=== PATIENT | male | born 1950 | race Caucasian/White ===

== ENCOUNTER 2021-09-09 08:37 | Inpatient (IN) | payer MEDICARE ==
[~2021-09-09] VITALS: Ht 180.3 cm; Wt 90.7 kg
[~2021-09-09 08:37] MED LIST: ATOR20; ATOR20 PO; AZIT250 PO; DECARA1250 MC1 PO; Inderal40 MG PO; OMEP20ER PO; OMEPRAZOLE MAGN20 MG PO; Omeprazole20 M1; PARO2SU; PAROXETINE ER25 MG; PAXIL40 M1 PO; PRED20 PO; PRIM50 PO; Paxil40 MG PO; Primidone50 MG; Primidone50 MG PO; TAMSULOSIN HCL0.4 M1 PO; XARELTO15 M1 PO; XARELTO15 MG PO; ZYRTEC10 M1 PO; [UNRECOGNIZED DRUG - REMARK]
[2021-09-09 09:52] LABS: BASOPHILS ABSOLUTE AUTO 0.01 K/mm3 (0.00-0.23); BASOPHILS PERCENT AUTO 0 % (0-2); EOSINOPHILS PERCENT AUTO 0 % (0-6); Hematocrit 45.2 % (37.0-53.0); Hemoglobin 14.8 g/dL (13.5-17.5); IMMATURE GRAN ABSOLUTE AUTO 0.03 K/mm3 (0.00-0.10); IMMATURE GRAN PERCENT AUTO 0 % (0-1); LYMPHOCYTES ABSOLUTE AUTO 0.68 K/mm3 (0.84-5.20); LYMPHOCYTES PERCENT AUTO 10 % (21-46); MONOCYTES ABSOLUTE AUTO 0.57 K/mm3 (0.16-1.47); MONOCYTES PERCENT AUTO 8 % (4-13); Mean Corpuscular HGB 31.9 pg (26.0-34.0); Mean Corpuscular HGB Conc 32.7 g/dL (31.5-36.5); Mean Corpuscular Volume 97 fL (80-100); Mean Platelet Volume 9.2 fL (9.1-12.4); NEUTROPHILS ABSOLUTE AUTO 5.78 K/mm3 (1.96-9.15); NEUTROPHILS PERCENT AUTO 82 % (41-73); Platelet Count 248 K/mm3 (150-400); RDW Coefficient Variation 13.5 % (11.7-14.2); RDW Standard Deviation 49.1 fL (35.1-46.3); Red Blood Cell Count 4.64 M/mm3 (4.30-5.90); White Blood Cell Count 7.07 K/mm3 (4.00-11.30)
[2021-09-09 10:04] LABS: Anion Gap 7 mmol/L (6-16); Blood Urea Nitrogen 22 mg/dL (8-24); Bun/Creatinine Ratio 39.5 (12.0-20.0); CO2, Blood 31 mmol/L (21-32); Calcium, Blood 8.8 mg/dL (8.5-10.1); Chloride, Blood 101 mmol/L (98-108); Creatinine, Blood 0.56 mg/dL (0.60-1.20); Glomerular Filtration Rate >60 (60-); Glucose, Blood 120 mg/dL (70-99); Potassium, Blood 3.8 mmol/L (3.5-5.5); Sodium, Blood 139 mmol/L (136-145)
--- NOTE | 2021-09-09 17:40 | NUR ---
ADMITTED FROM ER IN ISOLATION WITH COVID. O2 AT 6 LPM NASAL CANNULA. ATTENDS IN PLACE FOR INCONTINENT URINE AND STOOL. PINKISH AREA NOTED ON BUTTOCKS BLANCHABLE WITH INTACT SKIN. BARRIER CREAM WAS APPLIED ON ADMIT WHEN ATTENDS CHANGED. SALINE LOCK INTACT. CONTINUOUS PULSE OX INITIATED PER RESPIRATORY THERAPY RECENTLY. CPAP MACHINE FROM HOME NOT AVAILABLE. ORDER IS TO HAVE CPAP WITH HOME SETTINGS. PATIENT STATES HE HAS NOT BEEN USING HOME CPAP FOR A WHILE EVEN PRIOR TO GETTING COVID. RESPIRATIONS EVEN AND UNLABORED. WILL MONITOR.
[2021-09-10 05:15] LABS: Anion Gap 5 mmol/L (6-16); Blood Urea Nitrogen 20 mg/dL (8-24); Bun/Creatinine Ratio 43.6 (12.0-20.0); CO2, Blood 29 mmol/L (21-32); Calcium, Blood 8.2 mg/dL (8.5-10.1); Chloride, Blood 105 mmol/L (98-108); Creatinine, Blood 0.46 mg/dL (0.60-1.20); Glomerular Filtration Rate >60 (60-); Glucose, Blood 105 mg/dL (70-99); Potassium, Blood 3.8 mmol/L (3.5-5.5); Sodium, Blood 139 mmol/L (136-145)
--- NOTE | 2021-09-10 06:38 | NUR ---
SHIFT SUMMARY PATIENT ALERT AND ORIENTED X4. HAD NO COMPLAINTS OF PAIN OR SHORTNESS OF BREATH OVERNIGHT. CURRENTLY ON 3 LITERS O2 VIA NC. NO ACUTE ISSUES NOTED OVERNIGHT. BED IN LOWEST POSITION WITH WHEELS LOCKED AND ALARM ON. CALL LIGHT WITHIN REACH. REPORT GIVEN TO ONCOMING RN.
--- NOTE | 2021-09-10 10:15 | NUR ---
@ 0725, PULSE OX 93% ON O2 3 LPM NASAL CANNULA, HR 65.
--- NOTE | 2021-09-10 10:16 | NUR ---
@ 9050, BARRIER CREAM APPLIED TO BUTTOCKS WHEN ATTENDS AND LINEN CHANGED. URINE AND STOOL INCONTINENCE. EMPTIED 300 CC FROM URINAL.
--- NOTE | 2021-09-10 10:19 | NUR ---
O2 SAT 94% ON 3 LPM NASAL CANNULA, HR 76.
--- NOTE | 2021-09-10 14:59 | NUR ---
ATTEMPTED TO ASSIST PATIENT OOB X 2 TO [facility]. PATIENT WAS WEAK AND UNABLE TO STAND UP. DR. LÓPEZY IN FOR ROUNDS AND WAS INFORMED. PT/OT CONSULT BEING PLACED. ASSISTED PATIENT BACK TO LYING POSITION. ATTENDS CHANGED WITH URINE AND SMALL AMOUNT OF STOOL NOTED. BARRIER CREAM APPLIED. TOLERATED WELL. WILL MONITOR.
--- NOTE | 2021-09-10 15:49 | NUR ---
INCENTIVE SPIROMETER DISCUSSED WITH PATIENT BUT PHONE RANG SO INSTRUCTION WAS UNABLE TO BE PROVIDED. WILL NEED FOLLOW UP.
--- NOTE | 2021-09-10 16:26 | NUR ---
MEDICATED X 1 FOR PAIN. NO COMPLAINTS VOICED OTHERWISE. SALINE LOCK INTACT. RECEIVED IV ABX PER E-MAR. AMBUALTES TO BATHROOM. VOIDED AND HAD BM THIS SHIFT. ORTHOPEDIC CONSULT PENDING. TOLERATED PO FOOD AND FLUIDS. WILL MONITOR.
--- NOTE | 2021-09-10 16:29 | NUR ---
VOID PREVIOUS RN/MEDIC[employer] SALES EXECUTIVE SHIFT SUMMARY. DOCUMENTED ON WRONG PATIENT.
--- NOTE | 2021-09-10 16:30 | NUR ---
PATIENT IS STILL ON ISOLATION FOR COVID. PT EVALUATION JUST COMPLETED. RESPIRATION EVEN AND UNLABORED. IS PROVIDED. WILL NEED REINFORCED INSTRUCTIONS. O2 SAT REMAINED 90% AND ABOVE ON 3 LPM NASAL CANNULA. REMDESIVIR FIRST DOSE IN PROGRESS. SALINE LOCK INTACT. POOR FOOD INTAKE TODAY. PATIENT WANTED TO SLEEP ALOT. WILL MONITOR.
--- NOTE | 2021-09-11 05:57 | NUR ---
SHIFT SUMMARY PATIENT ALERT AND ORIENTED. HAD NO COMPLAINTS OF PAIN OR SHORTNESS OF BREATH. CURRENTLY ON 8 LITERS O2 VIA NC. NO ACUTE ISSUES NOTED OVERNIGHT. CALL LIGHT WITHIN REACH. REPORT GIVEN TO ONCOMING RN.
[2021-09-11 06:19] LABS: BASOPHILS ABSOLUTE AUTO 0.01 K/mm3 (0.00-0.23); BASOPHILS PERCENT AUTO 0 % (0-2); EOSINOPHILS ABSOLUTE AUTO 0.01 K/mm3 (0.00-0.68); EOSINOPHILS PERCENT AUTO 0 % (0-6); Hemoglobin 14.1 g/dL (13.5-17.5); IMMATURE GRAN ABSOLUTE AUTO 0.09 K/mm3 (0.00-0.10); IMMATURE GRAN PERCENT AUTO 2 % (0-1); LYMPHOCYTES ABSOLUTE AUTO 0.95 K/mm3 (0.84-5.20); LYMPHOCYTES PERCENT AUTO 18 % (21-46); MONOCYTES ABSOLUTE AUTO 0.58 K/mm3 (0.16-1.47); MONOCYTES PERCENT AUTO 11 % (4-13); Mean Corpuscular HGB 31.8 pg (26.0-34.0); Mean Corpuscular HGB Conc 32.8 g/dL (31.5-36.5); Mean Corpuscular Volume 97 fL (80-100); Mean Platelet Volume 9.3 fL (9.1-12.4); NEUTROPHILS ABSOLUTE AUTO 3.53 K/mm3 (1.96-9.15); NEUTROPHILS PERCENT AUTO 68 % (41-73); Platelet Count 232 K/mm3 (150-400); RDW Coefficient Variation 13.2 % (11.7-14.2); RDW Standard Deviation 47.9 fL (35.1-46.3); Red Blood Cell Count 4.43 M/mm3 (4.30-5.90); White Blood Cell Count 5.17 K/mm3 (4.00-11.30)
[2021-09-11 06:33] LABS: Anion Gap 7 mmol/L (6-16); Blood Urea Nitrogen 19 mg/dL (8-24); Bun/Creatinine Ratio 54.9 (12.0-20.0); CO2, Blood 26 mmol/L (21-32); Calcium, Blood 8.1 mg/dL (8.5-10.1); Chloride, Blood 105 mmol/L (98-108); Creatinine, Blood 0.35 mg/dL (0.60-1.20); Glomerular Filtration Rate >60 (60-); Glucose, Blood 110 mg/dL (70-99); Sodium, Blood 138 mmol/L (136-145)
--- NOTE | 2021-09-11 14:23 | NUR ---
SPOKE WITH SHENA IN RESPIRATORY ABOUT SETTING UP A BIPAP PER PROTOCOL.
--- NOTE | 2021-09-11 18:08 | NUR ---
SLEPT MOST OF THE DAY. REMAINS IN ISOLATION DUE TO COVID. RESPIRATORY THRAPIST SPOKE WITH PATIENT AND SET UP BIPAP. PATIENT AGREED TO USE IT AT NIGHT IF HE COULD HAVE A SLEEPING PILL. MD ORDERED MELATONIN. PATIENT'S O2 REMAINS AT 8 LPM VIA CANNULA. RESPIRATIONS ARE UNLABORED, COUGH IS PRODUCTIVE. ENCOURAGED IS USE TODAY WHEN ROUNDING, AVERAGING [phone]. VOIDS PER URINAL AND HAS ATTENDS IN PLACE. SALINE LOCK INTACT. RECEIVED DOSE OF REMDESIVIR TODAY. MEDICATED PER E-OCT. WILL MONITOR.
--- NOTE | 2021-09-12 06:47 | NUR ---
SHIFT SUMMARY PATIENT ALERT AND ORIENTED. HAD NO COMPLAINTS OF PAIN OR SHORTNESS OF BREATH. CONTINUES ON 8 LITERS O2 VIA NC. ATTEMPTED WEARING CPAP BUT IS COUGHING UP TOO MUCH SPUTUM TO WEAR. NO ACUTE ISSUES NOTED OVERNIGHT. CALL LIGHT WITHIN REACH. REPORT GIVEN TO ONCOMING RN.
--- NOTE | 2021-09-12 09:55 | NUR ---
@0820, REFUSED BREAKFAST. STATED HE DIDN'T TOLERATE BIPAP WELL LAST NIGHT DUE TO NASAL CONGESTION. CONTINUOUS PULSE OX IN USE. ATTENDS INTACT. IS ENCOURAGED AND USED AVERAGING 1400. TOLERATED WELL. FREQUENT PRODUCTIVE COUGH NOTED. WILL MONITOR.
--- NOTE | 2021-09-12 11:16 | NUR ---
@ 1056, PATIENT O2 SAT 85% ON 8 LPM HIGH FLOW CANNULA. O2 INCREASED TO 9 LPM, PATIENT USED IS WITH ENCOURAGEMENT AND O2 SAT BECAME 91%. O2 AT 9 LPM CONTINUES. WILL MONITOR.
--- NOTE | 2021-09-12 12:12 | NUR ---
MAINTAINED O2 AT 94-95% SINCE INCREASED. DECREASED BACK TO 8 LPM HIGH FLOW CANNULA. STILL MAINTAINING AT 94%. AWAKE AND WATCHING TV. STATED HE WAS UNABLE TO TOLERATE SITTING IN THE CHAIR WITH PT. WILL MONITOR.
--- NOTE | 2021-09-12 17:07 | NUR ---
O2 AT 8 LPM HIGH FLOW CANNULA. INCREASED BRIEFLY TO 9 LPM DUE TO PULSE OX. AWAKE MORE TODAY. POOR FOOD INTAKE. STARTED ENSURE PO. VOIDS PER URINAL. ATTENDS PRESENT FOR STOOL AND OCCASIONAL URINE. STILL IN ISOLATION DUE TO COVID. RECEIVED REMDIZIVIR PER E-MAR. VS STABLE. IS USED AVERAGING [phone]. WILL MONITOR.
--- NOTE | 2021-09-13 05:13 | NUR ---
SHIFT SUMMARY AOX4. SLOW TO RESPOND. VERY WEAK & DECONDITIONED. DENIES PAIN, N/V OR SOB @REST. SPO2 @94% ON 7L O2. LS DIM T/O. HAS MOD PRODUCTIVE COUGH c YELLOW, CLEAR SPUTUM. USING SUCTION @BEDSIDE TO ASSIST c SPUTUM PRODUCTION. INFORMED DR SALDIVAR & SHE ORDERED 600MG MUCINEX BID FOR PT. CALL LIGHT IN REACH. WCTM.
--- NOTE | 2021-09-13 11:52 | NUR ---
RETURNED CALL TO PATIENT'S DAUGHTER, BRISSA AT [phone]. UPDATED ON STATUS. SHE SAID HE WANTS TO GO HOME. REVIEWED SOME INFO FROM THE DOCTOR'S 09/09/21 PROGRESS NOTE WITH HER ABOUT HIM REFUSING TO GO TO A COVID UNIT WITH REHAB SERVICES. SHE WOULD LIKE THE DOCTOR TO CALL HER TODAY IF POSSIBLE. I TOLD HER I WOULD DO MY BEST TO FACILITATE THIS IF I SEE THE DOCTOR ON ROUNDS AND THAT I WOULD PUT HER NAME AND NUMBER ON THE WHITEBOARD IN THE ROOM SO IT IS ACCESSIBLE TO THE DOCTOR.
--- NOTE | 2021-09-13 14:18 | NUR ---
@ 1010, PULSE OX 94%, HR 82.
--- NOTE | 2021-09-13 14:19 | NUR ---
@ 1230, O2 DECREASED TO 6 L[address] FLOW CANNULA[address] RO IN. TALKED TO HER ABOUT DAUGHTER WANTING A PHONE CALL. O2 SAT 94%.
--- NOTE | 2021-09-13 14:21 | NUR ---
O2 SAT 95% ON 6 LPM CANNULA.
--- NOTE | 2021-09-13 14:48 | NUR ---
SPOKE WITH FLAKITA IN PALLIATIVE CARE ABOUT NEW CONSULT.
--- NOTE | 2021-09-13 15:05 | NUR ---
Referral and report received from pt's RN on current status and concerns re: goals of care, pt's wishes for d/c home despite therapy recommendation for rehab in [facility] re[facility] unit. 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 Referral placed for CM/social media marketer to assist with d/c planning also. [facility] to see as soon as we are able to.
--- NOTE | 2021-09-13 16:33 | NUR ---
02 WEANED TO 6 LPM CANNULA WHICH IS WHAT PATIENT WAS ON AT HOME PRIOR TO THIS ADMIT. PATIENT WANTS TO BE DISCHARGED. DAUGHTER HAS CONCERNS WITH BEING ABLE TO CARE FOR HIM AND HER MOTHER AT HOME WITH THEIR CURRENT CONDITIONS. DR. RO SPOKE WITH DAUGHTER AND THEY WILL ALL CONFERENCE TOMORROW ABOUT D/C DISPOSITION. REMDIZIVIR IV CONTINUES. PATIENT ALSO IS BEING SEEN BY A NEUROLOGIST AND WORKED UP TO SEE IF HE MAY HAVE MUSCULAR DYSTROPHY. CONTINUOUS PULSE OX CONTINUES. VOIDS BY URINAL AND OCCASIONALLY IN ATTENDS WITH INCONTINENT STOOL. PATIENT HAS BEEN MORE AWAKE TODAY THAN THE LAST FEW DURING DAYSHIFT. COMPLETED PT TODAY. WILL MONITOR.
--- NOTE | 2021-09-13 16:46 | NUR ---
SHIFT SUMMARY DONE UNDER A "NURSES NOTE" 09/13/21 AT 1633. SEE NURSES NOTE.
--- NOTE | 2021-09-13 17:09 | NUR ---
O2 SAT RUNNING 86-87%. O2 INCREASED TO 7 LPM. IS USE ENCOURAGED. CURRENTLY 94%.
[2021-09-13] MEDS ORDERED: VITAMIN D5000 UNIT PO (22:30)
--- NOTE | 2021-09-14 04:48 | NUR ---
SHIFT SUMMARY AOX3. SLOW TO RESPOND. FLAT, WITHDRAWN AFFECT. SPO2 >90% ON 6L O2. DENIES SOB @REST. LS DIM c RHONCHI IN R LOBES. STILL HAS PRODUCTIVE CONGESTED COUGH c MOD AMOUNT YELLOW/LIANG SPUTUM, USING SUCTION TO HELP. DENIES PAIN, N/V. AWAITING SAFE DC PLAN. CALL LIGHT IN REACH, [facility].
[2021-09-14 05:35] LABS: BASOPHILS ABSOLUTE AUTO 0.02 K/mm3 (0.00-0.23); BASOPHILS PERCENT AUTO 0 % (0-2); EOSINOPHILS ABSOLUTE AUTO 0.13 K/mm3 (0.00-0.68); EOSINOPHILS PERCENT AUTO 2 % (0-6); Hematocrit 46.1 % (37.0-53.0); Hemoglobin 14.8 g/dL (13.5-17.5); IMMATURE GRAN ABSOLUTE AUTO 0.03 K/mm3 (0.00-0.10); IMMATURE GRAN PERCENT AUTO 0 % (0-1); LYMPHOCYTES ABSOLUTE AUTO 1.27 K/mm3 (0.84-5.20); LYMPHOCYTES PERCENT AUTO 17 % (21-46); MONOCYTES PERCENT AUTO 8 % (4-13); Mean Corpuscular HGB 31.3 pg (26.0-34.0); Mean Corpuscular HGB Conc 32.1 g/dL (31.5-36.5); Mean Corpuscular Volume 98 fL (80-100); Mean Platelet Volume 9.2 fL (9.1-12.4); NEUTROPHILS ABSOLUTE AUTO 5.47 K/mm3 (1.96-9.15); NEUTROPHILS PERCENT AUTO 73 % (41-73); Platelet Count 295 K/mm3 (150-400); RDW Standard Deviation 46.7 fL (35.1-46.3); Red Blood Cell Count 4.73 M/mm3 (4.30-5.90); White Blood Cell Count 7.52 K/mm3 (4.00-11.30)
[2021-09-14 05:55] LABS: Anion Gap 6 mmol/L (6-16); Blood Urea Nitrogen 19 mg/dL (8-24); Bun/Creatinine Ratio 47.4 (12.0-20.0); CO2, Blood 28 mmol/L (21-32); Calcium, Blood 8.3 mg/dL (8.5-10.1); Chloride, Blood 103 mmol/L (98-108); Glomerular Filtration Rate >60 (60-); Glucose, Blood 97 mg/dL (70-99); Potassium, Blood 3.9 mmol/L (3.5-5.5); Sodium, Blood 137 mmol/L (136-145)
--- NOTE | 2021-09-14 17:22 | NUR ---
SHIFT SUMMARY: NO ACUTE EVENTS. DENIES PAIN. ORIENTED X 3, BUT HE IS WITHDRAWN WITH A FLAT AFFECT. OXYGEN TITRATED DOWN TO 4 L/MIN HIGH FLOW NC FROM 6 L THIS MORNING. PROD COUGH WITH WEAK COUGH EFFORT, USING SUCTION INDEPENDENTLY. DID NOT GET OOB WITH NURSING TODAY. HAS VERY POOR APPETITE. HAD POOR NIGHT'S SLEEP LAST NIGHT, HAS BEEN NAPPING INTERMITTENTLY ALL DAY. PT HAD MEETING WITH DR. RO AND HIS SON AND DAUGHTER REGARDING HIS D/C PLAN; WILL GO TO SNF COVID UNIT..
--- NOTE | 2021-09-15 06:06 | NUR ---
SHIFT SUMMARY PATIENT ALERT AND ORIENTED. HAD NO COMPLAINTS OF PAIN OR SHORTNESS OF BREATH. HAS WET PRODUCTIVE COUGH. NO ACUTE ISSUES NOTED OVERNIGHT. BED IN LOWEST POSITION WITH WHEELS LOCKED AND ALARM ON. CALL LIGHT WITHIN REACH. REPORT GIVEN TO ONCOMING RN.
[2021-09-15] MEDS ORDERED: GUAI600T33 PO (18:53)
[2021-09-15] MEDS ORDERED: CEFP200 PO (18:53)
[2021-09-15] MEDS ORDERED: MELATONIN5 M1 PO (18:54)
[2021-09-15] MEDS ORDERED: DECADRON6 M1 PO (18:55)
--- NOTE | 2021-09-15 18:55 | NUR ---
SHIFT SUMMARY: OXYGEN TITRATED DOWN TO 4 L/MIN NC WITH O2 SATS 90-93%. PROD COUGH BUT SPUTUM PRODUCTION HAS DECREASED. GOT UP TO CHAIR WITH 1 PERSON ASSIST AND GAIT BELT. POOR APPETITE, FAMILY BRINGING OUTSIDE FOOD. IN BETTER SPIRITS TODAY OVERALL. WILL TRANSFER TO [facility] THIS EVENING. TELEPHONE REPORT GIVEN TO NOVEMBER AT FACILITY.
--- NOTE | 2021-09-15 20:03 | NUR ---
naty discharged with transport.
== END 2021-09-15 20:01 | DRG 177 ==
LOC: ER 08:37 → MEDS 08:38
PROVIDERS: Internal Medicine; Nurse Practitioner Acute Care; Student in an Organized Health Care Education/Training Program; ADMIT Internal Medicine
PROC: 8E0ZXY6 Isolation (ICD-10-PCS; principal; 2021-09-10)
PROC: 3E0333Z Introduction of Anti-inflammatory into Peripheral Vein, Percutaneous Approach (ICD-10-PCS; 2021-09-10)
PROC: 3E0DX3Z Introduction of Anti-inflammatory into Mouth and Pharynx, External Approach (ICD-10-PCS; 2021-09-10)
DX: U07.1 COVID-19 (principal); J12.82 Pneumonia due to coronavirus disease 2019; J96.01 Acute respiratory failure with hypoxia; J15.9 Unspecified bacterial pneumonia; G25.0 Essential tremor; Z51.5 Encounter for palliative care; G47.33 Obstructive sleep apnea (adult) (pediatric); F32.A Depression, unspecified; N40.0 Benign prostatic hyperplasia without lower urinary tract symptoms; E78.00 Pure hypercholesterolemia, unspecified; G71.00 Muscular dystrophy, unspecified; Z98.890 Other specified postprocedural states; Z79.01 Long term (current) use of anticoagulants; Z79.52 Long term (current) use of systemic steroids; Z79.899 Other long term (current) drug therapy
CPT/HCPCS: 36415; 71045; 80048; 82550; 82947; 83735; 83880; 84145; 84484; 85025; 86038; 92610; 93005; 93010; 94660; 94762; 96365; 96366; 96375; 97110; 97116; 97162; 97166; 97530; 99285-25; A9270; G0378; J0248; J0456; J0696; J1100; J1650; J7050

== ENCOUNTER → 2021-12-08 | Outpatient (CLI) | payer MEDICARE ==
[~2021-12-08] MED LIST changes: +CEFP200 PO; +DECADRON6 M1 PO; +GUAI600T33 PO; +MELATONIN5 M1 PO; +VITAMIN D5000 UNIT PO
[2021-12-08 15:03] LABS: Alanine Aminotransfer (ALT/SGP 72 U/L (12-78); Albumin, Blood 3.1 g/dL (3.4-5.0); Albumin/Globulin Ratio 1.1 (0.8-1.8); Alk Phos 56 U/L (50-136); Anion Gap 4 mmol/L (6-16); Aspartate Aminotrans (AST/SGOT 46 U/L (12-37); Bilirubin, Total 0.4 mg/dL (0.1-1.0); Blood Urea Nitrogen 14 mg/dL (8-24); Bun/Creatinine Ratio 32.8 (12.0-20.0); CO2, Blood 31 mmol/L (21-32); Calcium, Blood 8.9 mg/dL (8.5-10.1); Chloride, Blood 106 mmol/L (98-108); Creatinine, Blood 0.43 mg/dL (0.60-1.20); Globulin, Blood 2.8 g/dL (2.2-4.0); Glomerular Filtration Rate >60 (60-); Glucose, Blood 90 mg/dL (70-99); Potassium, Blood 4.8 mmol/L (3.5-5.5); Sodium, Blood 141 mmol/L (136-145); Total Protein, Blood 5.9 g/dL (6.4-8.2)
== END | disposition home or self-care (01) ==
LOC: LAB SHORT 13:09 → LAB 13:09
DX: E78.5 Hyperlipidemia, unspecified (principal); J15.9 Unspecified bacterial pneumonia; M62.81 Muscle weakness (generalized); R26.2 Difficulty in walking, not elsewhere classified
CPT/HCPCS: 80053

== ENCOUNTER 2022-10-18 09:48 | Day surgery (SDC) | payer MEDICARE ==
[~2022-10-18] VITALS: Ht 177.8 cm; Wt 88.5 kg
[2022-10-18] MEDS ORDERED: PARO2SU (10:09)
== END 2022-10-18 11:50 | disposition home or self-care (01) ==
LOC: ORSCSDS 09:48
PROVIDERS: Internal Medicine Gastroenterology
PROC: 0DBN8ZX Excision of Sigmoid Colon, Via Natural or Artificial Opening Endoscopic, Diagnostic (ICD-10-PCS; principal; 2022-10-18 11:00)
DX: Z12.11 Encounter for screening for malignant neoplasm of colon (principal); Z86.010 Personal history of colon polyps; D12.5 Benign neoplasm of sigmoid colon; K57.30 Diverticulosis of large intestine without perforation or abscess without bleeding; K22.70 Barrett's esophagus without dysplasia; K76.0 Fatty (change of) liver, not elsewhere classified; G47.30 Sleep apnea, unspecified; Z79.01 Long term (current) use of anticoagulants; Z79.899 Other long term (current) drug therapy
CPT/HCPCS: 88305; J2704; J7120

== ENCOUNTER 2024-10-29 10:29 | Day surgery (SDC) | payer MEDICARE ==
[~2024-10-29] VITALS: Ht 180.3 cm; Wt 102.7 kg
[~2024-10-29 10:29] MED LIST changes: +Balanced Salt Epinephrine Irrigation Solution 500 mL IR SCH; +Lidocaine HCl/Pf 1% 5 ML VIAL XX SCH; +Moxifloxacin HCL 0.5 MG/0.1 ML 0.4MLSYR RIGHTEYE SCH; +NS 500 ML IV ONE; +PHENYLEPHRINE\\TROPICAMIDE\\TETRACAINE OPHTHALMIC DILATING SOLN RIGHTEYE PRN; +Povidone-Iodine 450 DROP/30 ML Solution ONE; +Povidone-Iodine 450 DROP/30 ML Solution RIGHTEYE SCH; +Tetracaine HCl/Pf 0.5% Opth Soln 4 ml ONE
[2024-10-29] MEDS ORDERED: JANTOVEN10 M2 (11:13)
[2024-10-29] MEDS ORDERED: EZET10 (11:14)
[2024-10-29] MEDS ORDERED: PARO20 (11:15)
[2024-10-29] MEDS ORDERED: FURO20 (11:15)
[2024-10-29] MEDS ORDERED: NS 1,000 ML IV ONE (11:25)
[2024-10-29] MEDS ORDERED: Midazolam HCl 1MG / ML 2ML Vial ONE (11:42)
[2024-10-29 12:08] VITALS: BP 140/50
== END 2024-10-29 12:25 | disposition home or self-care (01) ==
LOC: ORSCSDS 10:29
PROVIDERS: Student in an Organized Health Care Education/Training Program
PROC: 08RJ3JZ Replacement of Right Lens with Synthetic Substitute, Percutaneous Approach (ICD-10-PCS; principal; 2024-10-29 12:00)
DX: H25.813 Combined forms of age-related cataract, bilateral (principal); G47.33 Obstructive sleep apnea (adult) (pediatric); K21.9 Gastro-esophageal reflux disease without esophagitis; E66.9 Obesity, unspecified; Z68.31 Body mass index [BMI] 31.0-31.9, adult; K76.0 Fatty (change of) liver, not elsewhere classified; G47.30 Sleep apnea, unspecified; Z79.01 Long term (current) use of anticoagulants; Z79.899 Other long term (current) drug therapy
CPT/HCPCS: J2250; J7040; V2632